=== PATIENT | female | born 1970 | race Caucasian/White ===

== ENCOUNTER 2024-08-30 20:50 | Emergency (ER) | payer SELFPAY ==
[~2024-08-30] VITALS: Ht 160 cm; Wt 63.5 kg
[2024-08-30] MEDS ORDERED: Ketorolac Tromethamine 15mg Vial IM ONE (23:00)
[2024-08-30] MEDS ORDERED: Lidocaine 4% 1 Patch TOP ONE (23:00)
[2024-08-30] MEDS ORDERED: Robaxin750 MG PO (23:03)
[2024-08-30] MEDS ORDERED: LIDOCAINE1 EACH TOP (23:03)
== END 2024-08-30 23:18 | disposition home or self-care (01) ==
LOC: ER 20:50
DX: M54.31 Sciatica, right side (principal); Z79.899 Other long term (current) drug therapy
CPT/HCPCS: 99283-25; A9270; J1885

== ENCOUNTER 2024-09-06 16:49 | Emergency (ER) | payer SELFPAY ==
[~2024-09-06] VITALS: Ht 162.6 cm; Wt 68.0 kg
[~2024-09-06 16:49] MED LIST: LIDOCAINE1 EACH TOP; Robaxin750 MG PO
== END 2024-09-06 21:54 | disposition home or self-care (01) ==
LOC: ER 16:49
DX: M54.40 Lumbago with sciatica, unspecified side (principal)
CPT/HCPCS: 99283